=== PATIENT | male | born 1970 | race Caucasian/White ===

== ENCOUNTER 2019-03-28 20:34 | Emergency (ER) | payer SELFPAY ==
[~2019-03-28] VITALS: Ht 160 cm; Wt 68.0 kg
[2019-03-28 20:45] VITALS: BP_SYST 142
--- NOTE | 2019-03-28 20:45 | NUR ---
Patient to ER bed H1 to gown for evaluation. Side rails up. Assumed care.
--- NOTE | 2019-03-28 21:00 | NUR ---
Patient arrived via [facility], AAOX[facility], and ambulatory with stable gait. Patient arrived for medical clearance and evaluation of hypertension. Patient states history of hypertension with no home medications. Patient states no other history. Patient states no chest pain, shortness of breath, or headache. Patient calm and cooperative. Will continue to follow up and monitor.
--- NOTE | 2019-03-28 21:57 | NUR ---
ER at bedside examining patient.
[2019-03-28 22:16] VITALS: BP_SYST 142
--- NOTE | 2019-03-28 22:17 | NUR ---
Patient given written and verbal discharge instructions and verbalizes understanding. ER MD discussed with patient the results and treatment provided. Patient in stable condition. ID arm band removed. Rx not given. Patient educated on pain management and to follow up with PMD. Pain Scale 0/10. Opportunity for questions provided and answered. Medication side effect fact sheet provided.
== END 2019-03-28 22:17 ==
LOC: SED 20:34
DX: I10 Essential (primary) hypertension (principal)
CPT/HCPCS: 99283